=== PATIENT | male | born 1985 | race Caucasian/White ===

== ENCOUNTER 2021-03-19 16:24 | Emergency (ER) | payer SELFPAY ==
[~2021-03-19] VITALS: Ht 182.9 cm; Wt 68.0 kg
--- NOTE | 2021-03-19 16:40 | ED GU-Female ---
General Chief Complaint: - Urinary Stated Complaint: GROIN PAIN History of Present Illness Date Seen by Provider: Mar 19, 2021 Time Seen by Provider: 16:35 Initial Comments 36-year-old male presents with left testicular pain. Patient reports the pain started yesterday morning. That he took an ibuprofen and it improved. He reports that when he awoke this morning the pain had returned. That he is continue to have some pain. He denies any dysuria. He denies any trauma. Denies any testicular swelling. He denies nausea, vomiting, fevers chills or other systemic complaints. Allergies and Home Medications Allergies Coded Allergies: No Known Drug Allergies (Unverified , 03/19/21) Patient Home Medication List Home Medication List Reviewed: Yes Review of Systems Review of Systems Constitutional: No chills, No fever Respiratory: no symptoms reported Cardiovascular: no symptoms reported Gastrointestinal: No abdominal pain, No nausea, No vomiting Genitourinary: see HPI Musculoskeletal: no symptoms reported Skin: no symptoms reported Psychiatric/Neurological: No Symptoms Reported Endocrine: No Symptoms Reported Past Uekcqgb-[id number]-[id number] Hx Past Med/Social Hx: Reviewed Nursing Past Med/Soc Hx Physical Exam Vital Signs Vital Signs - First Documented 03/19/21 16:33 Temp 37.0 Pulse 93 Resp 18 B/P (MAP) 142/83 (102) Pulse Ox 100 O2 Delivery Room Air Capillary Refill : Height, Weight, BMI Height: '" Weight: lbs. oz. kg; BMI Method: General Appearance: no apparent distress Neck: full range of motion, supple Cardiovascular: regular rate, rhythm, no edema Respiratory: lungs clear, normal breath sounds Gastrointestinal: non tender, soft Genital/Rectal: other (Slightly high riding left testicle, mild scrotal erythema, no swelling, no firmness, testicle with proper vertical lie, positive cremaster reflex) Extremities: normal range of motion, non-tender Progress/Results/Core Measures Suspected Sepsis SIRS Temperature: Pulse: Respiratory Rate: Blood Pressure / Mean: Results/Orders Lab Results Laboratory Tests Test 03/19/21 16:45 Range/Units Urine Color YELLOW Urine Clarity CLEAR Urine pH 7.0 5-9 Urine Specific [place] 1.020 1.016-1.022 Urine Protein NEGATIVE NEGATIVE Urine Glucose (UA) NEGATIVE NEGATIVE Urine Ketones NEGATIVE NEGATIVE Urine Nitrite NEGATIVE NEGATIVE Urine Bilirubin NEGATIVE NEGATIVE Urine Urobilinogen 1.0 < = 1.0 MG/DL Urine Leukocyte Esterase TRACE H NEGATIVE Urine RBC (Auto) NEGATIVE NEGATIVE Urine RBC 0-2 /HPF Urine WBC 10-25 H /HPF Urine Squamous Epithelial Cells 0-2 /HPF Urine Crystals NONE /LPF Urine Bacteria NEGATIVE /HPF Urine Casts NONE /LPF Urine Mucus NEGATIVE /LPF Urine Culture Indicated YES My Orders Orders - BEACH,TREVIN L DO Ua Culture If Indicated (03/19/21 16:41) Urine Culture (03/19/21 16:45) Ct Abdomen/Pelvis Wo (03/19/21 17:07) Vital Signs/I&O 03/19/21 16:33 Temp 37.0 Pulse 93 Resp 18 B/P (MAP) 142/83 (102) Pulse Ox 100 O2 Delivery Room Air Capillary Refill : Progress Note : Progress Note Patient with a twist score of 1 for high riding testicle. Negative for testicular swelling, hard testicle, there he does have a positive cremasteric reflex, and no nausea or vomiting. That would give him a score less than 1. Which has a NPV of 100% for clinical clearance for testicular torsion. At this time there would be no indication for emergent ultrasound with that to a score of 1 and symptoms approximately 36 hours. If symptoms are not improving he should follow with his primary care provider tomorrow to arrange for an outpatient ultrasound. Patient's UA shows a moderate amount of blood but no infection. CT exam does not show any kidney stone. Patient with possible early epididymitis is versus other etiology. At this time however there is no signs of infection in his urine so we will not treat him with antibiotics, he should follow-up with a primary care provider in the next 1 to 2 days for recheck of symptoms. Patient stable discharged Diagnostic Imaging Diagonstic Imaging: CT Plain Films/CT/US/NM/MRI: abdomen Comments CT ABDOMEN/PELVIS WO PROCEDURE: CT abdomen and pelvis without contrast. TECHNIQUE: Auto Exposure Controls were utilized during the CT exam to meet ALARA standards for radiation dose reduction. INDICATION: Kidney stone, left groin pain, hematuria. No history of cancer. FINDINGS: The lung bases are clear. Gallbladder is contracted. No duct dilatation is seen. The spleen, pancreas, adrenal glands and kidneys appear unremarkable. Bladder is poorly distended. There is some questionable thickening of the urinary bladder. This could be due to under distention. Cystitis cannot be excluded. No free fluid is present. The appendix is normal. Bowel loops demonstrate a large amount of stool throughout the colon. The stomach is distended with food substance. Small bowel loops appear unremarkable. There is paucity of mesenteric fat and inflammation in the mesentery cannot be excluded. No enlarged lymph node is identified. Osseous structures appear normal. IMPRESSION: 1. Questionable mild thickening of the urinary bladder wall, recommend correlation for cystitis. 2. Large amount of stool is seen in the colon. 3. Large amount fluid is present in the stomach. 4. There is paucity of mesenteric fat. Inflammation in the mesentery could be missed. Reviewed: Reviewed by Me, Reviewed/Discussed Departure Impression Primary Impression: Pain in left testicle Disposition: HOME, SELF-CARE Condition: Stable Departure-Patient Inst. Referrals: ELIUD BEAL MD (PCP/Family) Primary Care Physician Patient Instructions: Epididymitis (DC) Add. Discharge Instructions: Scrotal elevation and support Tylenol ibuprofen as needed for pain Follow-up with your primary care provider in the next 1 to 2 days for recheck of symptoms All discharge instructions reviewed with patient and/or family. Voiced understanding. TREVIN BEACH DO Mar 19, 2021 16:40
[2021-03-19 16:53] LABS: BACTERIA,URINE NEGATIVE /HPF; BILIRUBIN,URINE NEGATIVE (NEGATIVE); CLARITY,URINE CLEAR; COLOR,URINE YELLOW; GLUCOSE, URINE (UA) NEGATIVE (NEGATIVE); KETONES,URINE NEGATIVE (NEGATIVE); LEUKOCYTE ESTERASE ,URINE TRACE (NEGATIVE); NITRITE,URINE NEGATIVE (NEGATIVE); PROTEIN,URINE NEGATIVE (NEGATIVE); RBC,URINE 0-2 /HPF; SQUAMOUS EPITHELIAL CELL,UR 0-2 /HPF
--- NOTE | 2021-03-19 17:53 | Diagnostic Imaging Report ---
PROCEDURE: CT abdomen and pelvis without contrast. TECHNIQUE: Auto Exposure Controls were utilized during the CT exam to meet ALARA standards for radiation dose reduction. INDICATION: Kidney stone, left groin pain, hematuria. No history of cancer. FINDINGS: The lung bases are clear. Gallbladder is contracted. No duct dilatation is seen. The spleen, pancreas, adrenal glands and kidneys appear unremarkable. Bladder is poorly distended. There is some questionable thickening of the urinary bladder. This could be due to under distention. Cystitis cannot be excluded. No free fluid is present. The appendix is normal. Bowel loops demonstrate a large amount of stool throughout the colon. The stomach is distended with food substance. Small bowel loops appear unremarkable. There is paucity of mesenteric fat and inflammation in the mesentery cannot be excluded. No enlarged lymph node is identified. Osseous structures appear normal. IMPRESSION: 1. Questionable mild thickening of the urinary bladder wall, recommend correlation for cystitis. 2. Large amount of stool is seen in the colon. 3. Large amount fluid is present in the stomach. 4. There is paucity of mesenteric fat. Inflammation in the mesentery could be missed. Dictated by: Dictated on workstation # [id number]
[2021-03-19 18:07] VITALS: BP 142/88
== END 2021-03-19 18:11 | disposition home or self-care (01) ==
LOC: ER FS 16:26
DX: N50.812 Left testicular pain (principal)
CPT/HCPCS: 74176; 81000; 87088